=== PATIENT | female | born 1995 | race Caucasian/White ===

== ENCOUNTER 2018-10-13 07:17 | Outpatient (CLI) | payer BC ==
[2018-10-13] MEDS ORDERED: Gadobenate Dimeglumine 529 MG/1 ML (20ML VIAL) ONE (09:00)
--- NOTE | 2018-10-13 09:31 | MRI ---
BRAIN MRI WITH AND WITHOUT CONTRAST: History: Migraines without status migrainosis. FINDINGS: No hemorrhage on the axial gradient echo sequence. Calvarium has a normal T1 marrow signal intensity. Midline brain parenchymal structures are unremarka ble. No parenchymal mass, mass effect, or midline shift. Brain volume is age appropriate. Cortical sexton wh ite matter differentiation is preserved. Ventricles and sulci are patent and symmetric. No hydrocephalus. Minimal perivascular spaces are noted on the left and right subinsular region. There are no significa nt T2 or FLAIR white matter hyperintensities. Central arterial flow voids are maintained. Absent restricted diffusion. Mild enhancement of the paranasal sinuses. No pathologic enhancement of the brain parenchyma. IMPRESSION: Unremarkable pre and post contrast MRI of the brain. POS: [facility]
== END 2018-10-13 07:18 | disposition home or self-care (01) ==
LOC: SCSMRI 07:17
PROVIDERS: ATTEND Nurse Practitioner Acute Care
DX: G43.909 Migraine, unspecified, not intractable, without status migrainosus (principal)
CPT/HCPCS: 70553